=== PATIENT | female | born 1990 | race Caucasian/White ===

== ENCOUNTER 2018-06-13 16:58 | Emergency (ER) | payer OTHER ==
[~2018-06-13] VITALS: Ht 157.5 cm; Wt 85.4 kg
[2018-06-13] MEDS ORDERED: IV NORMAL SALINE 1,000ML 1,000 ML IV SCH (17:23)
--- NOTE | 2018-06-13 17:23 | PHYS DOC ---
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 No blood in the stool or emesis. 4 episodes of vomiting, no episodes of stool. No recent travel, no or unusual foods. Patient's child was sick with similar issues yesterday and is here today due to continued diarrhea. No fever. Diffuse achy pain in the abdomen that is mild. Nothing seems to make this better or worse. Patient has a history of pancreatic cancer that has been resected surgically. No recent changes in weight. No back pain like what was her presenting symptom to ultimately lead to the pancreatic cancer diagnosis.[] Review of Systems Review of Systems Constitutional: Denies fever or chills [] Eyes: Denies change in visual acuity, redness, or eye pain [] HENT: Denies nasal congestion or sore throat [] Respiratory: Denies cough or shortness of breath [] Cardiovascular: No chest pain or palpitations[] GI: See history of present illness[] : Denies dysuria or hematuria [] Musculoskeletal: Denies back pain or joint pain [] Integument: Denies rash or skin lesions [] Neurologic: Denies headache, focal weakness or sensory changes [] Endocrine: Denies polyuria or polydipsia [] All other systems were reviewed and found to be within normal limits, except as documented in this note. Allergies Allergies Allergies Coded Allergies Type Severity Reaction Last Updated Verified No Known Drug Allergies 06/13/18 No Physical Exam Physical Exam Constitutional: Well developed, well nourished, no acute distress, non-toxic appearance. [] HENT: Normocephalic, atraumatic, bilateral external ears normal, oropharynx moist, no oral exudates, nose normal. [] Eyes: PERRLA, EOMI, conjunctiva normal, no discharge. [] Neck: Normal range of motion, no tenderness, supple, no stridor. [] Cardiovascular:Heart rate regular rhythm, no murmur [] Lungs & Thorax: Bilateral breath sounds clear to auscultation [] Abdomen: Bowel sounds normal, soft, no tenderness, no masses, no pulsatile masses. [] Skin: Warm, dry, no erythema, no rash. [] Back: No tenderness, no CVA tenderness. [] Extremities: No tenderness, no cyanosis, no clubbing, ROM intact, no edema. [] Neurologic: Alert and oriented X 3, normal motor function, normal sensory function, no focal deficits noted. [] Psychologic: Affect normal, judgement normal, mood normal. [] Current Patient Data Vital Signs Vital Signs Date Time Temp Pulse Resp B/P (MAP) Pulse Ox O2 Delivery O2 Flow Rate FiO2 06/13/18 16:58 98.4 132 20 95 Room Air EKG EKG [] Radiology/Procedures Radiology/Procedures [] Course & Med Decision Making Course & Med Decision Making Pertinent Labs and Imaging studies reviewed. (See chart for details) ED course: Patient arrived, was placed in bed, tolerated exam well. Patient had IV access established and was given IV fluids as well as antiemetics. Laboratory studies are pending at the time of this dictation. Patient care endorsed to the oncoming physician at 1800.[] Pt. reports marked improvement with symptoms. Bowel sounds hyperactive, but no current vomiting or diarrhea. No true rebound or localization of pain. Pt. Requesting discharge. Discussed lab findings with pt. Reviewed pancreatic cancer resection and spleen removal. Normally follows with [facility]. No over seas travel, specific ill contacts, no contacts with reptiles, poultry ect. No other complaints of infectious sources except and child. . No history of vaginal discharge, dysuria, cough, skin lesions. did have an episode of several days of diarrhea and GI symptoms approximately 1 week ago. No history of intake of bad food. Patient to follow -up primary care. Patient may take Zofran 8 mg up 4 times a day for nausea and vomiting. Patient to have her glucose rechecked upon follow-up. Pt . stay on clear fluids only x 48hs. No solids or milk products. Must allow bowel rest. Suspect viral syndrome, but I do have concerns ref. here prior abd. surgeries, especially spleen removal. Will not start antibiotic at this time - the risks and benefits discussed. . Pt. must return if any increase symptoms or any concerns. Must be followed up closely. Offered Acute Abd. Xray and further labs. Pt. declined at this time. Pt. must have re-exam if no improvement. Impressed on pt. to even return tonight if any concerns. Impression: 1. Abd. Pain 2. Gastroenteritis-nausea, vomiting, diarrhea- suspect viral 3. Leukocytosis 22.4, Seg 89 4. Elevated glucose-145 Follow up call to [facility].- advised Jacklyn was doing much better as well as his son. Encouraged keep follow up. Return if any concern prior to follow at [place]. 06-14-2018 1800 hrs. Dragon Disclaimer Dragon Disclaimer This electronic medical record was generated, in whole or in part, using a voice recognition dictation system. Departure Departure: Referrals: AYAN COLLAZO PA-C (PCP) Scripts Ondansetron Hcl (ZOFRAN) 8 Mg Tablet 8 MG PO QIDPRN PRN for nv, #30 TAB Prov: KATTY SAENZ MD 06/13/18 Sandi Disclaimer This chart was dictated in whole or in part using Voice Recognition software in a busy, high-work load, and often noisy Emergency Department environment. It may contain unintended and wholly unrecognized errors or omissions. Dragon Disclaimer This chart was dictated in whole or in part using Voice Recognition software in a busy, high-work load, and often noisy Emergency Department environment. It may contain unintended and wholly unrecognized errors or omissions. Dragon Disclaimer This chart was dictated in whole or in part using Voice Recognition software in a busy, high-work load, and often noisy Emergency Department environment. It may contain unintended and wholly unrecognized errors or omissions. Discharge Summary Visit Information Final Diagnosis Problems Medical Problems: (1) Viral syndrome Status: Acute Brief Hospital Course Allergies Allergies Coded Allergies Type Severity Reaction Last Updated Verified No Known Drug Allergies 06/13/18 No Vital Signs Vital Signs Date Time Temp Pulse Resp B/P (MAP) Pulse Ox O2 Delivery O2 Flow Rate FiO2 06/13/18 19:05 79 16 113/71 (85) 97 Room Air 06/13/18 16:58 98.4 Lab Results Laboratory Tests Test 06/13/18 17:15 06/13/18 17:30 06/13/18 17:50 White Blood Count 22.4 x10^3/uL (4.0-11.0) Red Blood Count 4.99 x10^6/uL (3.50-5.40) Hemoglobin 15.0 g/dL (12.0-15.5) Hematocrit 44.7 % (36.0-47.0) Mean Corpuscular Volume 90 fL (79-100) Mean Corpuscular Hemoglobin 30 pg (25-35) Mean Corpuscular Hemoglobin Concent 34 g/dL (31-37) Red Cell Distribution Width 13.2 % (11.5-14.5) Platelet Count 564 x10^3/uL (140-400) Neutrophils (%) (Auto) 91 % (31-73) Lymphocytes (%) (Auto) 5 % (24-48) Monocytes (%) (Auto) 3 % (0-9) Eosinophils (%) (Auto) 0 % (0-3) Basophils (%) (Auto) 1 % (0-3) Neutrophils # (Auto) 20.3 x10^3uL (1.8-7.7) Lymphocytes # (Auto) 1.2 x10^3/uL (1.0-4.8) Monocytes # (Auto) 0.7 x10^3/uL (0.0-1.1) Eosinophils # (Auto) 0.1 x10^3/uL (0.0-0.7) Basophils # (Auto) 0.1 x10^3/uL (0.0-0.2) Segmented Neutrophils % 89 % (35-66) Band Neutrophils % 2 % (0-9) Lymphocytes % 4 % (24-48) Monocytes % 4 % (0-10) Eosinophils % 1 % (0-5) Platelet Estimate Increased (ADEQUATE) Sodium Level 138 mmol/L (136-145) Potassium Level 3.9 mmol/L (3.5-5.1) Chloride Level 103 mmol/L (98-107) Carbon Dioxide Level 22 mmol/L (21-32) Anion Gap 13 (6-14) Blood Urea Nitrogen 15 mg/dL (7-20) Creatinine 0.9 mg/dL (0.6-1.0) Estimated GFR (Cockcroft-Gault) 75.1 BUN/Creatinine Ratio 17 (6-20) Glucose Level 145 mg/dL (70-99) Calcium Level 9.1 mg/dL (8.5-10.1) Total Bilirubin 0.3 mg/dL (0.2-1.0) Aspartate Amino Transf (AST/SGOT) 19 U/L (15-37) Alanine Aminotransferase (ALT/SGPT) 27 U/L (14-59) Alkaline Phosphatase 82 U/L (46-116) Total Protein 8.2 g/dL (6.4-8.2) Albumin 4.1 g/dL (3.4-5.0) Albumin/Globulin Ratio 1.0 (1.0-1.7) Lipase 112 U/L (73-393) Influenza Type A (Rapid) Negative (NEGATIVE) Influenza Type B (Rapid) Negative (NEGATIVE) Urine Collection Type Unknown Urine Color Yellow Urine Clarity Clear Urine pH 6.0 Urine Specific [place] >=1.030 Urine Protein Trace (NEG-TRACE) Urine Glucose (UA) Neg mg/dL (NEG) Urine Ketones (Stick) 15 mg/dL (NEG) Urine Blood Neg (NEG) Urine Nitrite Neg (NEG) Urine Bilirubin Neg (NEG) Urine Urobilinogen Dipstick 0.2 mg/dL (0.2 mg/dL) Urine Leukocyte Esterase Neg (NEG) Urine RBC 0 /HPF (0-2) Urine WBC 0 /HPF (0-4) Urine Squamous Epithelial Cells Few /LPF Urine Bacteria Few /HPF (0-FEW) Brief Hospital Course Ms. Myers is a 28 old female who presented with N,V, Diarrhea. Hx. with similar symptoms last week. Pt. risks of spleen removal a concern. Pt. return if no improvement or any concerns. Pt. discharge with Rx. Zofran.. Must have close followup. Pt. reports marked improvement at time of discharge. Pt. see primary in AM. Discharge Information Condition at Discharge: Stable Disposition/Orders: D/C to Home Dischare Medications Current Medications Sodium Chloride 1,000 ml @ 100 mls/hr Q10H IV Last administered on 06/13/18at 17:30; Start 06/13/18 at 17:23; Stop 06/13/18 at 19:26; Status DC Prochlorperazine Edisylate (Compazine) 5 mg 1X ONCE IV Last administered on 05/20at 17:30; Start 06/13/18 at 17:45; Stop 06/13/18 at 17:46; Status DC Ondansetron HCl (Starter Pack - Zofran Odt) 1 [facility] ONCE PO ; Start 06/13/18 at 19:03; Stop 06/13/18 at 19:05; Status DC Ondansetron HCl (Starter Pack - Zofran Odt) 1 startpack 1X ONCE PO Last administered on 06/13/18at 19:14; Start 06/13/18 at 20:00; Stop 06/13/18 at 20:01 ; Status DC Active Scripts Active Zofran (Ondansetron Hcl) 8 Mg Tablet 8 Mg PO QIDPRN PRN Discharge Summary Visit Information Final Diagnosis Problems Medical Problems: (1) Viral syndrome Status: Acute Brief Hospital Course Allergies Allergies Coded Allergies Type Severity Reaction Last Updated Verified No Known Drug Allergies 06/13/18 No Vital Signs Vital Signs Date Time Temp Pulse Resp B/P (MAP) Pulse Ox O2 Delivery O2 Flow Rate FiO2 06/13/18 19:05 79 16 113/71 (85) 97 Room Air 06/13/18 16:58 98.4 Lab Results Laboratory Tests Test 06/13/18 17:15 06/13/18 17:30 06/13/18 17:50 White Blood Count 22.4 x10^3/uL (4.0-11.0) Red Blood Count 4.99 x10^6/uL (3.50-5.40) Hemoglobin 15.0 g/dL (12.0-15.5) Hematocrit 44.7 % (36.0-47.0) Mean Corpuscular Volume 90 fL (79-100) Mean Corpuscular Hemoglobin 30 pg (25-35) Mean Corpuscular Hemoglobin Concent 34 g/dL (31-37) Red Cell Distribution Width 13.2 % (11.5-14.5) Platelet Count 564 x10^3/uL (140-400) Neutrophils (%) (Auto) 91 % (31-73) Lymphocytes (%) (Auto) 5 % (24-48) Monocytes (%) (Auto) 3 % (0-9) Eosinophils (%) (Auto) 0 % (0-3) Basophils (%) (Auto) 1 % (0-3) Neutrophils # (Auto) 20.3 x10^3uL (1.8-7.7) Lymphocytes # (Auto) 1.2 x10^3/uL (1.0-4.8) Monocytes # (Auto) 0.7 x10^3/uL (0.0-1.1) Eosinophils # (Auto) 0.1 x10^3/uL (0.0-0.7) Basophils # (Auto) 0.1 x10^3/uL (0.0-0.2) Segmented Neutrophils % 89 % (35-66) Band Neutrophils % 2 % (0-9) Lymphocytes % 4 % (24-48) Monocytes % 4 % (0-10) Eosinophils % 1 % (0-5) Platelet Estimate Increased (ADEQUATE) Sodium Level 138 mmol/L (136-145) Potassium Level 3.9 mmol/L (3.5-5.1) Chloride Level 103 mmol/L (98-107) Carbon Dioxide Level 22 mmol/L (21-32) Anion Gap 13 (6-14) Blood Urea Nitrogen 15 mg/dL (7-20) Creatinine 0.9 mg/dL (0.6-1.0) Estimated GFR (Cockcroft-Gault) 75.1 BUN/Creatinine Ratio 17 (6-20) Glucose Level 145 mg/dL (70-99) Calcium Level 9.1 mg/dL (8.5-10.1) Total Bilirubin 0.3 mg/dL (0.2-1.0) Aspartate Amino Transf (AST/SGOT) 19 U/L (15-37) Alanine Aminotransferase (ALT/SGPT) 27 U/L (14-59) Alkaline Phosphatase 82 U/L (46-116) Total Protein 8.2 g/dL (6.4-8.2) Albumin 4.1 g/dL (3.4-5.0) Albumin/Globulin Ratio 1.0 (1.0-1.7) Lipase 112 U/L (73-393) Influenza Type A (Rapid) Negative (NEGATIVE) Influenza Type B (Rapid) Negative (NEGATIVE) Urine Collection Type Unknown Urine Color Yellow Urine Clarity Clear Urine pH 6.0 Urine Specific [place] >=1.030 Urine Protein Trace (NEG-TRACE) Urine Glucose (UA) Neg mg/dL (NEG) Urine Ketones (Stick) 15 mg/dL (NEG) Urine Blood Neg (NEG) Urine Nitrite Neg (NEG) Urine Bilirubin Neg (NEG) Urine Urobilinogen Dipstick 0.2 mg/dL (0.2 mg/dL) Urine Leukocyte Esterase Neg (NEG) Urine RBC 0 /HPF (0-2) Urine WBC 0 /HPF (0-4) Urine Squamous Epithelial Cells Few /LPF Urine Bacteria Few /HPF (0-FEW) Brief Hospital Course Ms. Myers is a 28 old female who presented with suspect viral syndrome. Pt. improved with fluids and zofran. Will follow up on friday. Return if any concerns. Discussed risk of spleen removal and need for close follow-up. Discharge Information Condition at Discharge: Improved, Stable Disposition/Orders: D/C to Home Dischare Medications Current Medications Sodium Chloride 1,000 ml @ 100 mls/hr Q10H IV Last administered on 06/13/18at 17:30; Start 06/13/18 at 17:23; Stop 06/13/18 at 19:26; Status DC Prochlorperazine Edisylate (Compazine) 5 mg 1X ONCE IV Last administered on 05/20at 17:30; Start 06/13/18 at 17:45; Stop 06/13/18 at 17:46; Status DC Ondansetron HCl (Starter Pack - Zofran Odt) 1 startpack [facility] ONCE PO ; Start 06/13/18 at 19:03; Stop 06/13/18 at 19:05; Status DC Ondansetron HCl (Starter Pack - Zofran Odt) 1 startpack 1X ONCE PO Last administered on 06/13/18at 19:14; Start 06/13/18 at 20:00; Stop 06/13/18 at 20:01 ; Status DC Active Scripts Active Zofran (Ondansetron Hcl) 8 Mg Tablet 8 Mg PO QIDPRN PRN Discharge Summary Visit Information Final Diagnosis Problems Medical Problems: (1) Viral syndrome Status: Acute Brief Hospital Course Allergies Allergies Coded Allergies Type Severity Reaction Last Updated Verified No Known Drug Allergies 06/13/18 No Vital Signs Vital Signs Date Time Temp Pulse Resp B/P (MAP) Pulse Ox O2 Delivery O2 Flow Rate FiO2 06/13/18 19:05 79 16 113/71 (85) 97 Room Air 06/13/18 16:58 98.4 Lab Results Laboratory Tests Test 06/13/18 17:15 06/13/18 17:30 06/13/18 17:50 White Blood Count 22.4 x10^3/uL (4.0-11.0) Red Blood Count 4.99 x10^6/uL (3.50-5.40) Hemoglobin 15.0 g/dL (12.0-15.5) Hematocrit 44.7 % (36.0-47.0) Mean Corpuscular Volume 90 fL (79-100) Mean Corpuscular Hemoglobin 30 pg (25-35) Mean Corpuscular Hemoglobin Concent 34 g/dL (31-37) Red Cell Distribution Width 13.2 % (11.5-14.5) Platelet Count 564 x10^3/uL (140-400) Neutrophils (%) (Auto) 91 % (31-73) Lymphocytes (%) (Auto) 5 % (24-48) Monocytes (%) (Auto) 3 % (0-9) Eosinophils (%) (Auto) 0 % (0-3) Basophils (%) (Auto) 1 % (0-3) Neutrophils # (Auto) 20.3 x10^3uL (1.8-7.7) Lymphocytes # (Auto) 1.2 x10^3/uL (1.0-4.8) Monocytes # (Auto) 0.7 x10^3/uL (0.0-1.1) Eosinophils # (Auto) 0.1 x10^3/uL (0.0-0.7) Basophils # (Auto) 0.1 x10^3/uL (0.0-0.2) Segmented Neutrophils % 89 % (35-66) Band Neutrophils % 2 % (0-9) Lymphocytes % 4 % (24-48) Monocytes % 4 % (0-10) Eosinophils % 1 % (0-5) Platelet Estimate Increased (ADEQUATE) Sodium Level 138 mmol/L (136-145) Potassium Level 3.9 mmol/L (3.5-5.1) Chloride Level 103 mmol/L (98-107) Carbon Dioxide Level 22 mmol/L (21-32) Anion Gap 13 (6-14) Blood Urea Nitrogen 15 mg/dL (7-20) Creatinine 0.9 mg/dL (0.6-1.0) Estimated GFR (Cockcroft-Gault) 75.1 BUN/Creatinine Ratio 17 (6-20) Glucose Level 145 mg/dL (70-99) Calcium Level 9.1 mg/dL (8.5-10.1) Total Bilirubin 0.3 mg/dL (0.2-1.0) Aspartate Amino Transf (AST/SGOT) 19 U/L (15-37) Alanine Aminotransferase (ALT/SGPT) 27 U/L (14-59) Alkaline Phosphatase 82 U/L (46-116) Total Protein 8.2 g/dL (6.4-8.2) Albumin 4.1 g/dL (3.4-5.0) Albumin/Globulin Ratio 1.0 (1.0-1.7) Lipase 112 U/L (73-393) Influenza Type A (Rapid) Negative (NEGATIVE) Influenza Type B (Rapid) Negative (NEGATIVE) Urine Collection Type Unknown Urine Color Yellow Urine Clarity Clear Urine pH 6.0 Urine Specific [place] >=1.030 Urine Protein Trace (NEG-TRACE) Urine Glucose (UA) Neg mg/dL (NEG) Urine Ketones (Stick) 15 mg/dL (NEG) Urine Blood Neg (NEG) Urine Nitrite Neg (NEG) Urine Bilirubin Neg (NEG) Urine Urobilinogen Dipstick 0.2 mg/dL (0.2 mg/dL) Urine Leukocyte Esterase Neg (NEG) Urine RBC 0 /HPF (0-2) Urine WBC 0 /HPF (0-4) Urine Squamous Epithelial Cells Few /LPF Urine Bacteria Few /HPF (0-FEW) Brief Hospital Course Ms. Myers is a 28 old [sex] who presented with [ ] Discharge Information Dischare Medications Current Medications Sodium Chloride 1,000 ml @ 100 mls/hr Q10H IV Last administered on 06/13/18at 17:30; Start 06/13/18 at 17:23; Stop 06/13/18 at 19:26; Status DC Prochlorperazine Edisylate (Compazine) 5 mg 1X ONCE IV Last administered on 05/20at 17:30; Start 06/13/18 at 17:45; Stop 06/13/18 at 17:46; Status DC Ondansetron HCl (Starter Pack - Zofran Odt) 1 startpack [facility] ONCE PO ; Start 06/13/18 at 19:03; Stop 06/13/18 at 19:05; Status DC Ondansetron HCl (Starter Pack - Zofran Odt) 1 startpack 1X ONCE PO Last administered on 06/13/18at 19:14; Start 06/13/18 at 20:00; Stop 06/13/18 at 20:01 ; Status DC Active Scripts Active Zofran (Ondansetron Hcl) 8 Mg Tablet 8 Mg PO QIDPRN GUDELIAN [place] HERNANDEZ DO Jun 13, 2018 17:23 KATTY SAENZ MD Jun 13, 2018 21:33
[2018-06-13 17:41] LABS: BASO # 0.1 x10^3/uL (0.0-0.2); BASO % 1 % (0-3); EOS # 0.1 x10^3/uL (0.0-0.7); EOS % 0 % (0-3); HEMATOCRIT 44.7 % (36.0-47.0); LYMPH # 1.2 x10^3/uL (1.0-4.8); LYMPH % 5 % (24-48); MEAN CORPUSCULAR HEMOGLOBIN 30 pg (25-35); MEAN CORPUSCULAR HGB CONC 34 g/dL (31-37); MEAN CORPUSCULAR VOLUME 90 fL (79-100); MONO # 0.7 x10^3/uL (0.0-1.1); MONO % 3 % (0-9); NEUT # 20.3 x10^3uL (1.8-7.7); NEUT % 91 % (31-73); PLATELET COUNT 564 x10^3/uL (140-400); RED BLOOD COUNT 4.99 x10^6/uL (3.50-5.40); RED CELL DISTRIBUTION WIDTH 13.2 % (11.5-14.5); WHITE BLOOD COUNT 22.4 x10^3/uL (4.0-11.0)
[2018-06-13] MEDS ORDERED: PROCHLORPERAZINE 10 MG/2 ML VIAL. IV ONE (17:45)
[2018-06-13 17:56] LABS: ALBUMIN 4.1 g/dL (3.4-5.0); CALCIUM 9.1 mg/dL (8.5-10.1); CREATININE 0.9 mg/dL (0.6-1.0); GFR 75.1; POTASSIUM 3.9 mmol/L (3.5-5.1); TOTAL BILIRUBIN 0.3 mg/dL (0.2-1.0); TOTAL PROTEIN 8.2 g/dL (6.4-8.2)
[2018-06-13 17:57] LABS: % EOS 1 % (0-5); % LYMPHS 4 % (24-48); % MONOS 4 % (0-10)
[2018-06-13 17:58] LABS: PLT ESTIMATE INCREASED (ADEQUATE)
[2018-06-13 17:59] LABS: % BANDS 2 % (0-9); % SEGS 89 % (35-66)
[2018-06-13 18:12] LABS: BACTERIA,URINE FEW /HPF (0-FEW); BILIRUBIN,URINE NEG (NEG); CLARITY,URINE CLEAR; COLOR,URINE YELLOW; GLUCOSE,URINE NEG (NEG); NITRITE,URINE NEG (NEG); RBC,URINE 0 /HPF (0-2); SQUAMOUS EPITHELIAL CELL,UR FEW /LPF; UROBILINOGEN,URINE 0.2 mg/dL (0.2 mg/dL); WBC,URINE 0 /HPF (0-4)
[2018-06-13 18:13] LABS: INFLUENZA A PATIENT NEGATIVE (NEGATIVE); INFLUENZA B PATIENT NEGATIVE (NEGATIVE)
[2018-06-13] MEDS ORDERED: ONDA8TAB9 PO (18:59)
[2018-06-13] MEDS ORDERED: ONDANSETRON 4MG ODT 4TABLET STARTPACK. PO ONE ×2 (19:03→20:00)
[2018-06-13 19:05] VITALS: BP 113/71
== END 2018-06-13 19:14 | disposition home or self-care (01) ==
LOC: ER 16:58
DX: K52.9 Noninfective gastroenteritis and colitis, unspecified (principal); D72.829 Elevated white blood cell count, unspecified; R73.9 Hyperglycemia, unspecified; B34.9 Viral infection, unspecified
CPT/HCPCS: 36415; 80053; 81001; 83690; 85007; 85025; 87804; 96361; 96374; 99283; J0780; Q0162; J7030

== ENCOUNTER 2018-12-13 06:34 | Emergency (ER) | payer OTHER ==
[~2018-12-13] VITALS: Ht 157.5 cm; Wt 85.5 kg
[~2018-12-13 06:34] MED LIST: ONDA8TAB9 PO
[2018-12-13] MEDS ORDERED: IV NORMAL SALINE 1,000ML 1,000 ML IV SCH (06:53)
--- NOTE | 2018-12-13 06:59 | PHYS DOC ---
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 She indicates that she went to bed last night with pain and her mid back between her shoulder blades and states that when she woke up this morning, she had pain in her chest as well. She states that initially she was having increased pain with deep breathing but states that currently it is not worsened with deep breathing. She rates pain at an 8 out of 10 and states it feels like something is on her chest. She denies any recent injury. She denies any cough or shortness of breath. She denies any lower extremity pain or swelling. She denies any family history of cardiac disease or blood clots. She states that nothing is improving the pain.[] Review of Systems Review of Systems Constitutional: Denies fever or chills [] Respiratory: Denies cough or shortness of breath [] Cardiovascular: No additional information not addressed in HPI [] GI: Denies abdominal pain, nausea, vomiting or diarrhea [] Musculoskeletal: Complains of midthoracic pain [] Integument: Denies rash or skin lesions [] All other systems were reviewed and found to be within normal limits, except as documented in this note. Allergies Allergies Allergies Coded Allergies Type Severity Reaction Last Updated Verified No Known Drug Allergies 06/13/18 No Physical Exam Physical Exam Constitutional: Well developed, well nourished, no acute distress, non-toxic appearance. [] HENT: Normocephalic, atraumatic, bilateral external ears normal, oropharynx moist, no oral exudates, nose normal. [] Eyes: PERRLA, EOMI, conjunctiva normal, no discharge. [] Neck: Normal range of motion, no tenderness, supple, no stridor. [] Cardiovascular: Regular rate and rhythm. There is reproducible chest wall tenderness along the right sternal border.[] Lungs & Thorax: Bilateral breath sounds clear to auscultation [] Abdomen: Bowel sounds normal, soft, no tenderness. [] Skin: Warm, dry, no erythema, no rash. [] Back: There is tenderness to palpation around T6 and T7 on the right paraspinal musculature. [] Extremities: No tenderness, no cyanosis, no clubbing, ROM intact, no edema. [] Neurologic: Alert and oriented X 3, no focal deficits noted. [] Current Patient Data Vital Signs Vital Signs Date Time Temp Pulse Resp B/P (MAP) Pulse Ox O2 Delivery O2 Flow Rate FiO2 12/13/18 06:49 98.3 80 16 97 Room Air EKG EKG EKG demonstrates sinus rhythm with rate of 76.[] Radiology/Procedures Radiology/Procedures [] Impressions: CXR demonstrates no acute process. Course & Med Decision Making Course & Med Decision Making Pertinent Labs and Imaging studies reviewed. (See chart for details) [] Dragon Disclaimer Dragon Disclaimer This electronic medical record was generated, in whole or in part, using a voice recognition dictation system. Departure Departure: Impression: Primary Impression: Chest wall pain Disposition: HOME, SELF-CARE Condition: STABLE Referrals: AYAN COLLAZO PA-C (PCP) Patient Instructions: Chest Wall Pain Scripts Diclofenac Sodium (DICLOFENAC SODIUM) 50 Mg Tablet.dr 1 TAB PO BID PRN for PAIN, #20 TAB Prov: LENARD UREÑA Jr. DO 12/13/18 Tramadol Hcl (TRAMADOL HCL) 50 Mg Tablet 50 MG PO PRN Q6HRS PRN for PAIN, #12 TAB Prov: LENARD UREÑA Jr. DO 12/13/18 LENARD UREÑA Jr. DO Dec 13, 2018 06:59
[2018-12-13] MEDS ORDERED: ASPIRIN 81 MG TAB.CHEW PO ONE (07:00)
[2018-12-13 07:08] LABS: BASO # 0.1 x10^3/uL (0.0-0.2); BASO % 1 % (0-3); EOS # 0.2 x10^3/uL (0.0-0.7); EOS % 2 % (0-3); HEMOGLOBIN 13.2 g/dL (12.0-15.5); LYMPH # 4.3 x10^3/uL (1.0-4.8); LYMPH % 38 % (24-48); MEAN CORPUSCULAR HEMOGLOBIN 30 pg (25-35); MEAN CORPUSCULAR HGB CONC 33 g/dL (31-37); MEAN CORPUSCULAR VOLUME 90 fL (79-100); MONO # 1.2 x10^3/uL (0.0-1.1); MONO % 10 % (0-9); NEUT # 5.6 x10^3uL (1.8-7.7); NEUT % 49 % (31-73); PLATELET COUNT 546 x10^3/uL (140-400); RED BLOOD COUNT 4.46 x10^6/uL (3.50-5.40); RED CELL DISTRIBUTION WIDTH 13.8 % (11.5-14.5); WHITE BLOOD COUNT 11.3 x10^3/uL (4.0-11.0)
[2018-12-13 07:23] LABS: ALBUMIN 3.8 g/dL (3.4-5.0); ALBUMIN/GLOBULIN RATIO 1.2 (1.0-1.7); CALCIUM 9.3 mg/dL (8.5-10.1); CREATININE 0.8 mg/dL (0.6-1.0); MAGNESIUM 1.8 mg/dL (1.8-2.4); POTASSIUM 4.4 mmol/L (3.5-5.1); TOTAL BILIRUBIN 0.3 mg/dL (0.2-1.0); TOTAL PROTEIN 6.9 g/dL (6.4-8.2)
[2018-12-13] MEDS ORDERED: KETOROLAC 30 MG/ML VIAL. IV ONE (07:30)
--- NOTE | 2018-12-13 07:46 | RAD ---
EXAM: CHEST 1 VIEW History: Chest pain COMPARISON: None available. TECHNIQUE: Single portable radiograph of the chest FINDINGS: The cardiac silhouette is unremarkable. The lungs are clear bilaterally. The costophrenic sulci are clear and well demarcated. IMPRESSION: No radiographic evidence of an acute cardiopulmonary process. Electronically signed by: Tim Flor MD (12/13/2018 7:43 AM) [facility]
[2018-12-13] MEDS ORDERED: DICL50TA4 PO (08:22)
[2018-12-13] MEDS ORDERED: TRAM50TA PO (08:22)
[2018-12-13 08:38] VITALS: BP 99/60
== END 2018-12-13 09:10 | disposition home or self-care (01) ==
LOC: ER 06:34
DX: R07.89 Other chest pain (principal); M54.6 Pain in thoracic spine
CPT/HCPCS: 36415; 71045; 80053; 81025; 83690; 83735; 84484; 85025; 85379; 93005; 96374; 99285; J1885; J7030

== ENCOUNTER 2019-03-20 09:26 | Emergency (ER) | payer OTHER ==
[~2019-03-20] VITALS: Ht 157.5 cm; Wt 90.8 kg
[~2019-03-20 09:26] MED LIST changes: +DICL50TA4 PO; +TRAM50TA PO
[2019-03-20 10:06] LABS: BASO # 0.1 x10^3/uL (0.0-0.2); BASO % 1 % (0-3); EOS # 0.1 x10^3/uL (0.0-0.7); EOS % 1 % (0-3); HEMATOCRIT 39.2 % (36.0-47.0); HEMOGLOBIN 13.2 g/dL (12.0-15.5); LYMPH # 4.6 x10^3/uL (1.0-4.8); LYMPH % 29 % (24-48); MEAN CORPUSCULAR HEMOGLOBIN 30 pg (25-35); MEAN CORPUSCULAR HGB CONC 34 g/dL (31-37); MEAN CORPUSCULAR VOLUME 89 fL (79-100); MONO # 1.4 x10^3/uL (0.0-1.1); MONO % 9 % (0-9); NEUT # 9.5 x10^3uL (1.8-7.7); NEUT % 60 % (31-73); PLATELET COUNT 502 x10^3/uL (140-400); RED BLOOD COUNT 4.38 x10^6/uL (3.50-5.40); RED CELL DISTRIBUTION WIDTH 14.3 % (11.5-14.5); WHITE BLOOD COUNT 15.7 x10^3/uL (4.0-11.0)
--- NOTE | 2019-03-20 10:14 | PHYS DOC ---
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 She reports to be about 6 weeks by last menstrual period. She has not had an OB evaluation. She reports being Rh-. She has abdominal cramping associated with vaginal bleeding. She has not seen passage of tissue. She denies vomiting fevers or chills. The pain is a cramping nonradiating mild to moderate sensation in the pelvic region. Review of systems is negative for chest pain shortness of breath fevers chills vomiting or changes in bowel or bladder. All other review of systems negative. ED course: 29-year-old female presenting with first trimester vaginal bleeding. Ultrasound and blood work obtained along with urinalysis. Ultrasound shows no evidence of intrauterine or extrauterine . Beta hCG is quite low. Otherwise workup is unremarkable. Patient was given RhoGAM because of her Rh- status. We will refer her to [facility] in 2 days for repeat ultrasound and/or quantitative hCG and reexamination. I explained the importance of this to the patient. Allergies Allergies Allergies Coded Allergies Type Severity Reaction Last Updated Verified No Known Drug Allergies 06/13/18 No Physical Exam Physical Exam Constitutional: Well developed, well nourished, no acute distress, non-toxic appearance. [] HENT: Normocephalic, atraumatic, bilateral external ears normal, oropharynx moist, no oral exudates, nose normal. [] Eyes: PERRLA, EOMI, conjunctiva normal, no discharge. [] Neck: Normal range of motion, no tenderness, supple, no stridor. [] Cardiovascular:Heart rate regular rhythm, no murmur [] Lungs & Thorax: Bilateral breath sounds clear to auscultation [] Abdomen: Bowel sounds normal, soft, no tenderness, no masses, no pulsatile masses. [] gu deferred. Skin: Warm, dry, no erythema, no rash. [] Back: No tenderness, no CVA tenderness. [] Extremities: No tenderness, no cyanosis, no clubbing, ROM intact, no edema. [] Neurologic: Alert and oriented X 3, normal motor function, normal sensory function, no focal deficits noted. [] Psychologic: Affect normal, judgement normal, mood normal. [] Current Patient Data Lab Results Laboratory Tests Test 03/20/19 09:51 White Blood Count 15.7 x10^3/uL (4.0-11.0) H Red Blood Count 4.38 x10^6/uL (3.50-5.40) Hemoglobin 13.2 g/dL (12.0-15.5) Hematocrit 39.2 % (36.0-47.0) Mean Corpuscular Volume 89 fL (79-100) Mean Corpuscular Hemoglobin 30 pg (25-35) Mean Corpuscular Hemoglobin Concent 34 g/dL (31-37) Red Cell Distribution Width 14.3 % (11.5-14.5) Platelet Count 502 x10^3/uL (140-400) H Neutrophils (%) (Auto) 60 % (31-73) Lymphocytes (%) (Auto) 29 % (24-48) Monocytes (%) (Auto) 9 % (0-9) Eosinophils (%) (Auto) 1 % (0-3) Basophils (%) (Auto) 1 % (0-3) Neutrophils # (Auto) 9.5 x10^3uL (1.8-7.7) H Lymphocytes # (Auto) 4.6 x10^3/uL (1.0-4.8) Monocytes # (Auto) 1.4 x10^3/uL (0.0-1.1) H Eosinophils # (Auto) 0.1 x10^3/uL (0.0-0.7) Basophils # (Auto) 0.1 x10^3/uL (0.0-0.2) Platelet Estimate Pending EKG EKG [] Radiology/Procedures Radiology/Procedures [] Course & Med Decision Making Course & Med Decision Making Pertinent Labs and Imaging studies reviewed. (See chart for details) [] Dragon Disclaimer Dragon Disclaimer This electronic medical record was generated, in whole or in part, using a voice recognition dictation system. Departure Departure: Impression: Primary Impression: Threatened miscarriage Disposition: 01 HOME, SELF-CARE Condition: STABLE Referrals: AYAN COLLAZO PA-C (PCP) Patient Instructions: Threatened Miscarriage Additional Instructions: Thank you for allowing us to participate in your care today. Return to the emergency department you have any new or worsening symptoms, or if you are concerned for any reason. Return to emergency department if you have any new or concerning symptoms including but not limited to fever, chills, nausea, vomiting, intractable pain, any new rashes, chest pain, shortness of air, uncontrolled bleeding, difficulty breathing, and/or vision loss. Follow up with your primary care physician within 1-2 days. Call your Primary Doctor tomorrow and inform them of your visit today. If you do not have a primary care provider we are happy to provide you with a list of our primary care providers contact information. This condition should be evaluated by your primary care physician and any recommended consulting services for continued management within 2 days after discharge. If at any time, you are having difficulty getting into your primary care doctor or a specialist, return to the emergency department. DOMENICO LANDEROS MD Mar 20, 2019 10:14
[2019-03-20 10:17] LABS: ALBUMIN 3.7 g/dL (3.4-5.0); CALCIUM 9.2 mg/dL (8.5-10.1); CREATININE 0.9 mg/dL (0.6-1.0); DIRECT BILIRUBIN 0.1 mg/dL (0.0-0.2); GFR 74.6; POTASSIUM 3.8 mmol/L (3.5-5.1); TOTAL BILIRUBIN 0.3 mg/dL (0.2-1.0); TOTAL PROTEIN 7.5 g/dL (6.4-8.2)
[2019-03-20 11:16] VITALS: BP 114/76
[2019-03-20 11:19] LABS: BILIRUBIN,URINE NEG (NEG); CLARITY,URINE CLEAR; COLOR,URINE STRAW; GLUCOSE,URINE NEG (NEG)
[2019-03-20 11:20] LABS: BACTERIA,URINE 0 /HPF (0-FEW); NITRITE,URINE NEG (NEG); RBC,URINE RARE /HPF (0-2); SQUAMOUS EPITHELIAL CELL,UR OCC /LPF; UROBILINOGEN,URINE 0.2 mg/dL (0.2 mg/dL); WBC,URINE 0 /HPF (0-4)
[2019-03-20 11:22] LABS: % SEGS 67 % (35-66)
[2019-03-20 11:23] LABS: % BANDS 0 % (0-9); % BASOS 1 % (0-3); % EOS 1 % (0-5); % LYMPHS 26 % (24-48); % MONOS 5 % (0-10); BURR CELLS PRESENT; PLT ESTIMATE INCREASED (ADEQUATE)
--- NOTE | 2019-03-20 12:04 | RAD ---
Exam performed: OB ultrasound first trimester. HISTORY: Post trimester bleeding, patient is 8 weeks . DATE OF SERVICE: 03/20/2019. COMPARISON: None available TECHNIQUE: Transabdominal. FINDINGS: Uterus measures 9.62 x 5.19 x 4.20 cm. The endometrial stripe measures 0.78 cm the fundus and 1.54 cm in the lower uterine segment . No intrauterine gestational sac is identified. Cervical length is normal and measures 3.79. Bilateral ovaries are normal. Right ovary measures 3.15 x 2.67 x 1.4 cm and the left ovary measures 3.19 x 2.82 x 1.67 cm. No solid or cystic masses are seen There is a small amount of simple free fluid in the posterior cul-de-sac. IMPRESSION: Normal uterus and bilateral ovaries. No definite evidence of intra or extrauterine noted. Tiny amount of free fluid in the posterior cul-de-sac likely physiological. Correlate with serial quantitative beta-hCG levels Electronically signed by: Iman Salazar MD (03/20/2019 12:01 PM) [facility]
== END 2019-03-20 12:38 | disposition home or self-care (01) ==
LOC: ER 09:26
DX: O20.0 Threatened abortion (principal); Z3A.01 Less than 8 weeks gestation of pregnancy
CPT/HCPCS: 36415; 36430; 76801; 80048; 80076; 81001; 84702; 85007; 85025; 86850; 86900; 86901; 99285; J2791

== ENCOUNTER 2019-05-25 05:10 | Emergency (ER) | payer OTHER ==
[~2019-05-25] VITALS: Ht 157.5 cm; Wt 93.9 kg
--- NOTE | 2019-05-25 05:13 | PHYS DOC ---
Past History Past Medical History: Cancer Additional Past Medical Histor: pancreatic cancer (KATTY SAENZ MD) Past Surgical History: Spleenectomy Additional Past Surgical Histo: partial pancreas removal (KATTY SAENZ MD) Smoking: Non-smoker Alcohol Use: None Drug Use: None (KATTY SAENZ MD) Adult General Chief Complaint Chief Complaint: ".. I ve been vomiting tonight... I vomited maybe 4 times.. I did eat [place] before it all started..." HPI HPI Patient is a 29 year old female who presents with above hx and complaints of vomiting with epigastric and right upper quadrant pain. Patient patient has significant medical history of pancreatic cancer and removal of two thirds of her pancreas. Pt. had a splenectomy at time of resection of her pancreas. Patient did not require chemotherapy or radiation post surgery. Patient last seen here in March for threatened miscarriage. Patient denies any travel or specific ill contacts. No history of immunosuppression. No history of trauma. Patient normally follows at [place]. (KATTY SAENZ MD) Review of Systems Review of Systems Constitutional: Denies fever or chills [] Eyes: Denies change in visual acuity, redness, or eye pain [] HENT: Denies nasal congestion or sore throat [] Respiratory: Denies cough or shortness of breath [] Cardiovascular: No additional information not addressed in HPI [] GI: Complaints of of epigastric abdominal pain, nausea, vomiting,. Patient denies bloody stools or diarrhea [] : Denies dysuria or hematuria [] Musculoskeletal: Denies back pain or joint pain [] Integument: Denies rash or skin lesions [] Neurologic: Denies headache, focal weakness or sensory changes [] Endocrine: Denies polyuria or polydipsia [] All other systems were reviewed and found to be within normal limits, except as documented in this note. (KATTY SAENZ MD) Family History Family History Noncontributory (KATTY SAENZ MD) Current Medications Current Medications See nursing for home meds (KATTY SAENZ MD) Allergies Allergies Allergies Coded Allergies Type Severity Reaction Last Updated Verified No Known Drug Allergies 06/13/18 No (KATTY SAENZ MD) Physical Exam Physical Exam Constitutional: Moderate acute distress, non-toxic appearance. [] HENT: Normocephalic, atraumatic, bilateral external ears normal, oropharynx moist, no oral exudates, nose normal. [] Eyes: PERRLA, EOMI, conjunctiva normal, no discharge. [] Neck: Normal range of motion, no tenderness, supple, no stridor. [] Cardiovascular:Heart rate regular rhythm, no murmur [] Lungs & Thorax: Bilateral breath sounds equal apex auscultation [] Abdomen: Bowel sounds normal, soft, epigastric and right upper quadrant tenderness, no masses, no pulsatile masses. [] Large midline scar upper abdomen. Rebound to right upper quadrant Skin: Warm, dry, no erythema, no rash. [] Back: No tenderness, no CVA tenderness. [] Extremities: No tenderness, no cyanosis, no clubbing, ROM intact, no edema. [] Neurologic: Alert and oriented X 3, normal motor function, normal sensory function, no focal deficits noted. [] Psychologic: Affect anxious, judgement normal, mood normal. [] (KATTY SAENZ MD) EKG EKG [] (KATTY SAENZ MD) Radiology/Procedures Radiology/Procedures [] (KATTY SAENZ MD) Radiology/Procedures PROCEDURE: CT ABD PELV W/ORAL&IV CONTRAST EXAM: CT ABDOMEN/PELVIS WITH CONTRAST. HISTORY: Right upper quadrant pain, prior pancreatic neoplasm status post resection. TECHNIQUE: Computed tomography of the abdomen and pelvis was performed after the intravenous administration of iodinated contrast. COMPARISON: None. FINDINGS: Lung windows through the visualized portions of the bases reveal no abnormality. Bone windows reveal no suspicious lesions. The pancreatic tail and spleen have been resected. No recurrent mass is identified. The pancreatic head remnant is unremarkable. There are no suspicious hepatic lesions. The kidneys, adrenal glands and gallbladder are unremarkable. There are no pathologically enlarged lymph nodes. There is mild wall thickening of the colon diffusely. There also appears to be mild involvement of the terminal ileum. There is no small bowel obstruction. There is no evidence of appendicitis. IMPRESSION: 1. Correlate for ileal colitis. Infection or inflammatory bowel disease are considerations. 2. Status post distal pancreatectomy and splenectomy. No evidence of recurrence. (YN HERNANDEZ DO) Course & Med Decision Making Course & Med Decision Making Pertinent Labs and Imaging studies reviewed. (See chart for details) Impression: 1. Abdomen Pain 2. Nausea and Vomiting 3. Hx. Pancreatic Cancer- Resection-2 yrs. ago (nonsecreting neuroendocrine tumor) 4. Hx. of Splenectomy - 2 years ago [] (KATTY SAENZ MD) Course & Med Decision Making Received the patient at 6 AM. Agree with previous H&P. Patient has been resting comfortably. She was transported to and from radiology with any complications. After return of laboratory and imaging findings, these were discussed with the patient who voiced understanding. All questions were answered. She was discharged in improved condition. (NY HERNANDEZ DO) Dragon Disclaimer Dragon Disclaimer This electronic medical record was generated, in whole or in part, using a voice recognition dictation system. (KATTY SAENZ MD) Departure Departure: Impression: Primary Impression: Colitis Disposition: 01 HOME, SELF-CARE Condition: IMPROVED Referrals: AYAN COLLAZO PA-C (PCP) Follow-up in 2 days Patient Instructions: Colitis, Diet for Diarrhea, Adult, Nausea and Vomiting Additional Instructions: Drink plenty of fluids, frequent small sips. No fatty foods, no milk, and no pepper for the next 48 hours. For the next 48 hours eat a diet rich in carbohydrates with foods such as bananas, rice, applesauce, and toast. Take the medication as prescribed. Follow-up with your regular doctor in 2 days. Return to the ER if unable to tolerate liquids, blood in stool or emesis, or any other concerns. Scripts Metronidazole (METRONIDAZOLE) 500 Mg Tablet 1 TAB PO QID for colitis for 10 Days, #40 TAB 0 Refills Prov: NY HERNANDEZ DO 05/25/19 Metoclopramide Hcl (REGLAN) 10 Mg Tablet 10 MG PO QID for nausea and vomiting, #30 TAB Prov: NY HERNANDEZ DO 05/25/19 Meloxicam (MELOXICAM) 7.5 Mg Tablet 7.5 MG PO DAILY for PAIN, #20 TAB Prov: NY HERNANDEZ DO 05/25/19 Hyoscyamine Sulfate (LEVSIN) 0.125 Mg Tablet 0.125 MG PO QID for abdominal pain/cramping, #30 TAB Prov: NY HERNANDEZ DO 05/25/19 Sulfamethoxazole/Trimethoprim (BACTRIM DS TABLET) 1 Each Tablet 1 TAB PO BID for colitis, #20 TAB Prov: NY HERNANDEZ DO 05/25/19 Sandi Disclaimer This chart was dictated in whole or in part using Voice Recognition software in a busy, high-work load, and often noisy Emergency Department environment. It may contain unintended and wholly unrecognized errors or omissions. (KATTY SAENZ MD) KATTY SAENZ MD May 25, 2019 05:13 NY HERNANDEZ DO May 25, 2019 08:22
[2019-05-25] MEDS ORDERED: IV RINGERS SOLUTION,LACTATED 1,000 ML IV SCH (05:30)
[2019-05-25 05:50] LABS: BARBITURATES NEG (NEG); BENZODIAZEPINES NEG (NEG); CANNABINOIDS NEG (NEG); COCAINE NEG (NEG); METHADONE NEG (NEG); OPIATES NEG (NEG); PHENCYCLIDINE NEG (NEG)
[2019-05-25 05:51] LABS: BACTERIA,URINE 0 /HPF (0-FEW); BILIRUBIN,URINE NEG (NEG); CLARITY,URINE CLEAR; COLOR,URINE YELLOW; GLUCOSE,URINE NEG (NEG); NITRITE,URINE NEG (NEG); RBC,URINE OCC /HPF (0-2); SQUAMOUS EPITHELIAL CELL,UR OCC /LPF; UROBILINOGEN,URINE 0.2 mg/dL (0.2 mg/dL); WBC,URINE OCC /HPF (0-4)
[2019-05-25 05:54] LABS: AMPHETAMINE/METHAMPHETAMINE NEG (NEG)
[2019-05-25] MEDS ORDERED: CONTRAST GIVEN MC PRN (06:00)
[2019-05-25] MEDS ORDERED: FAMOTIDINE 20 MG/2 ML VIAL IVP ONE (06:00)
[2019-05-25 06:03] LABS: BASO # 0.1 x10^3/uL (0.0-0.2); BASO % 0 % (0-3); EOS # 0.2 x10^3/uL (0.0-0.7); EOS % 1 % (0-3); HEMATOCRIT 42.1 % (36.0-47.0); HEMOGLOBIN 13.9 g/dL (12.0-15.5); LYMPH % 8 % (24-48); MEAN CORPUSCULAR HEMOGLOBIN 29 pg (25-35); MEAN CORPUSCULAR HGB CONC 33 g/dL (31-37); MEAN CORPUSCULAR VOLUME 89 fL (79-100); MONO # 1.5 x10^3/uL (0.0-1.1); MONO % 6 % (0-9); NEUT # 21.2 x10^3uL (1.8-7.7); NEUT % 85 % (31-73); PLATELET COUNT 614 x10^3/uL (140-400); RED BLOOD COUNT 4.72 x10^6/uL (3.50-5.40); RED CELL DISTRIBUTION WIDTH 13.5 % (11.5-14.5); WHITE BLOOD COUNT 24.9 x10^3/uL (4.0-11.0)
--- NOTE | 2019-05-25 06:05 | RAD ---
Exam: Acute abdominal series INDICATION: None TECHNIQUE: Frontal view of the chest with upright and supine views of the abdomen Comparisons: None FINDINGS: The cardiomediastinal silhouette and pulmonary vessels are within normal limits. The lung and pleural spaces are clear. Air and stool are noted throughout the colon to level the rectum in a nonobstructive bowel gas pattern. No suspicious masses or calcifications. IMPRESSION: 1. No acute cardiopulmonary process. 2. Nonobstructive bowel gas pattern. Electronically signed by: Jose Whalen MD (05/25/2019 6:02 AM) [facility]
[2019-05-25 06:10] LABS: CALCIUM 9.2 mg/dL (8.5-10.1); CREATININE 0.8 mg/dL (0.6-1.0); GFR 85.4; POTASSIUM 4.5 mmol/L (3.5-5.1)
[2019-05-25] MEDS ORDERED: IOHEXOL 300 MG/ML 75 ML VIAL. IV ONE (06:15)
[2019-05-25] MEDS ORDERED: IOHEXOL 240 MG/ML 50ML VIAL. PO ONE (06:15)
[2019-05-25] MEDS ORDERED: ONDANSETRON PF 4 MG/2 ML VIAL. ONE (06:16)
[2019-05-25 06:17] LABS: DIRECT BILIRUBIN 0.1 mg/dL (0.0-0.2); MAGNESIUM 1.8 mg/dL (1.8-2.4); TOTAL BILIRUBIN 0.2 mg/dL (0.2-1.0); TOTAL PROTEIN 7.4 g/dL (6.4-8.2)
[2019-05-25] MEDS ORDERED: ONDANSETRON PF 4 MG/2 ML VIAL. IVP ONE (06:30)
[2019-05-25] MEDS ORDERED: ONDANSETRON PF 4 MG/2 ML VIAL. IV ONE (06:30)
[2019-05-25 06:43] LABS: % EOS 1 % (0-5); % LYMPHS 12 % (24-48); % MONOS 3 % (0-10); % SEGS 84 % (35-66)
[2019-05-25 06:44] LABS: PLT ESTIMATE INCREASED (ADEQUATE)
--- NOTE | 2019-05-25 07:08 | EKG ---
[address] [address] Test Date: 2019-05-25 Test Time: 05:50:45 Pat Name: BANDAR DE LUNA Department: Room: Gender: F Hog Cooler: : 1990 Requested By: KATTY SAENZ Order Number: [id number] Reading MD: Measurements Intervals Brandt Rate: 76 P: 33 VT: 150 QRS: 102 QRSD: 74 T: 24 QT: 348 QTc: 391 Interpretive Statements SINUS RHYTHM RIGHTWARD AXIS LOW LIMB LEAD VOLTAGE QRS(T) CONTOUR ABNORMALITY CONSIDER ANTEROLATERAL MYOCARDIAL DAMAGE POSSIBLY ABNORMAL ECG RI6.01 No previous ECG available for comparison
--- NOTE | 2019-05-25 08:13 | RAD ---
EXAM: CT ABDOMEN/PELVIS WITH CONTRAST. HISTORY: Right upper quadrant pain, prior pancreatic neoplasm status post resection. TECHNIQUE: Computed tomography of the abdomen and pelvis was performed after the intravenous administration of iodinated contrast. COMPARISON: None. FINDINGS: Lung windows through the visualized portions of the bases reveal no abnormality. Bone windows reveal no suspicious lesions. The pancreatic tail and spleen have been resected. No recurrent mass is identified. The pancreatic head remnant is unremarkable. There are no suspicious hepatic lesions. The kidneys, adrenal glands and gallbladder are unremarkable. There are no pathologically enlarged lymph nodes. There is mild wall thickening of the colon diffusely. There also appears to be mild involvement of the terminal ileum. There is no small bowel obstruction. There is no evidence of appendicitis. IMPRESSION: 1. Correlate for ileal colitis. Infection or inflammatory bowel disease are considerations. 2. Status post distal pancreatectomy and splenectomy. No evidence of recurrence. *One or more of the following individualized dose reduction techniques were utilized for this examination: 1. Automated exposure control. 2. Adjustment of the mA and/or kV according to patient size. 3. Use of iterative reconstruction technique. Electronically signed by: Maryann Pacheco MD (05/25/2019 8:10 AM) [facility]
[2019-05-25] MEDS ORDERED: SULF1TAB24 PO (08:22)
[2019-05-25] MEDS ORDERED: METO10TA81 PO (08:22)
[2019-05-25] MEDS ORDERED: HYOS0.1264 PO (08:22)
[2019-05-25] MEDS ORDERED: METR-34 PO (08:22)
[2019-05-25] MEDS ORDERED: MELO7.5T29 PO (08:22)
[2019-05-25 08:34] VITALS: BP 130/74
== END 2019-05-25 08:33 | disposition home or self-care (01) ==
LOC: ER 05:10
DX: K52.9 Noninfective gastroenteritis and colitis, unspecified (principal); Z85.07 Personal history of malignant neoplasm of pancreas; Z90.81 Acquired absence of spleen
CPT/HCPCS: 36415; 74022; 74177; 80048; 80076; 80307; 81001; 81025; 82150; 82550; 83690; 83735; 84443; 84484; 84702; 85007; 85025; 85610; 85730; 86705; 86709; 86803; 87340; 93005; 96361; 96374; 96375; 99285; J2405; J3490; J7120; Q9966; Q9967

== ENCOUNTER 2020-06-29 15:36 | Emergency (ER) | payer OTHER ==
[~2020-06-29] VITALS: Ht 157.5 cm; Wt 96.8 kg
[~2020-06-29 15:36] MED LIST changes: +HYOS0.1264 PO; +MELO7.5T29 PO; +METO10TA81 PO; +METR-34 PO; +SULF1TAB24 PO
[2020-06-29 16:21] VITALS: BP 134/95
[2020-06-29] MEDS ORDERED: PENI500T PO (17:20)
[2020-06-29] MEDS ORDERED: HYDR-2155 PO (17:20)
[2020-06-29] MEDS ORDERED: NAPR-514 PO (17:20)
--- NOTE | 2020-06-29 17:21 | PHYS DOC ---
Past History Past Medical History: Cancer, Other Additional Past Medical Histor: Sleep, pancreatic cancer (ZACK JUAREZ APRN) Past Surgical History: Spleenectomy Additional Past Surgical Histo: partial pancreas removal (ZACK JUAREZ APRN) Smoking: Non-smoker Alcohol Use: None Drug Use: None (ZACK JUAREZ APRN) General Adult EDM: Chief Complaint: DENTAL PROBLEM HPI: HPI: Patient is a 30-year-old female who presents to the emergency department with complaints of lower left quadrant dental pain since yesterday. She states that about a week and 1/2 to 2 weeks ago feeling in one of her lower left teeth fell out. She denies any fever, nausea, vomiting, body aches, chills, fatigue, sore throat, headache, cough, or shortness of breath. Patient states that her left ear started to hurt today but denies any drainage or bleeding. She currently r ates pain 10 out of 10 on pain symptoms. Patient states she has an appointment with her dentist next week on July 04 to have her filling replaced. (ZACK JUAREZ APRN) Review of Systems: Review of Systems: Complete ROS is negative unless otherwise noted in HPI. (ZACK JUAREZ APRN) Allergies: Allergies: Allergies Coded Allergies Type Severity Reaction Last Updated Verified No Known Drug Allergies 06/13/18 No (ZACK JUAREZ APRN) Physical Exam: PE: See Above Constitutional: Well developed, well nourished, no acute distress, non-toxic appearance, obese. [] HENT: Normocephalic, atraumatic, bilateral external ears normal, bilateral TMs normal, nose normal; lower left first molar has open cavity has been missing filling no gingival erythema or edema no visible or palpable dental abscess. [] Eyes: PERRLA, EOMI, conjunctiva normal, no discharge. [] Neck: Normal range of motion, supple, no stridor. [] Cardiovascular:Heart rate regular rhythm Lungs & Thorax: Respirations even and unlabored, no retractions, no respiratory distress Skin: Warm, dry, no erythema, no rash. [] Extremities: No cyanosis, ROM intact, no edema. [] Neurologic: Alert and oriented X 3, no focal deficits noted. [] Psychologic: Affect normal, judgement normal, mood normal. [] (ZACK JUAREZ APRN) Current Patient Data: Vital Signs: Vital Signs Date Time Temp Pulse Resp B/P (MAP) Pulse Ox O2 Delivery O2 Flow Rate FiO2 06/29/20 16:21 98.2 79 16 134/95 (108) 98 Room Air (ZACK JUAREZ APRN) EKG: EKG: [] (ZACK JUAREZ APRN) Radiology/Procedures: Radiology/Procedures: [] (ZACK JUAREZ APRN) Heart Score: Risk Factors: Risk Factors: DM, Current or recent (<one month) smoker, HTN, HLP, family history of CAD, obesity. Risk Scores: Score 0 - 3: 2.5% MACE over next 6 weeks - Discharge Home Score 4 - 6: 20.3% MACE over next 6 weeks - Admit for Clinical Observation Score 7 - 10: 72.7% MACE over next 6 weeks - Early Invasive Strategies (ZACK JUAREZ APRN) Course & Med Decision Making: Course & Med Decision Making Pertinent Labs and Imaging studies reviewed. (See chart for details) [] (ZACK JUAREZ APRN) Dragon Disclaimer: Dragon Disclaimer: This electronic medical record was generated, in whole or in part, using a voice recognition dictation system. (ZACK JUAREZ APRN) Departure Departure: Impression: Primary Impression: Dentalgia Additional Impression: Loss of filling from access hole of tooth Disposition: 01 DC HOME SELF CARE/HOMELESS Condition: STABLE Referrals: PCP,UNKNOWN (PCP) Patient Instructions: Dental Pain, [id number] Additional Instructions: Fill the prescriptions take them as directed. Follow-up with your dentist next Friday as planned. Return to the ER if symptoms worsen or fever develops. Scripts Naproxen (NAPROXEN) 500 Mg Tablet 1 TAB PO BID for pain for 10 Days, #20 TAB 0 Refills Prov: ZACK JUAREZ APRN 06/29/20 Hydrocodone Bit/Acetaminophen (HYDROCODONE-APAP 5-325 ) 1 Each Tablet 0.5-1 TAB PO PRN Q6HRS PRN for PAIN for 3 Days, #4 TAB 0 Refills Prov: ZACK JUAREZ APRN 06/29/20 Penicillin V Potassium (PENICILLIN V POTASSIUM) 500 Mg Tablet 1 TAB PO QID for dental infection for 7 Days, #28 TAB 0 Refills Prov: ZACK JUAREZ APRN 06/29/20 Attending Signature Attending Signature I have reviewed the PA/GRINDER GEAR's note and plan of care. I was available for consultation as needed during the patient's visit in the emergency department. I agree with the clinical impression, plan, and disposition. (MAO DEMARCO DO) ZACK JUAREZ APRN Jun 29, 2020 17:21 MAO DEMARCO DO Jun 29, 2020 23:10
== END 2020-06-29 17:30 | disposition home or self-care (01) ==
LOC: ER 15:36
DX: K02.9 Dental caries, unspecified (principal); K08.89 Other specified disorders of teeth and supporting structures
CPT/HCPCS: 99283

== ENCOUNTER 2020-07-09 01:11 | Emergency (ER) | payer OTHER ==
[~2020-07-09 01:11] MED LIST changes: +HYDR-2155 PO; +NAPR-514 PO; +PENI500T PO
--- NOTE | 2020-07-09 01:41 | PHYS DOC ---
Past History Past Medical History: Cancer, Other Additional Past Medical Histor: Sleep, pancreatic cancer Past Surgical History: Spleenectomy Additional Past Surgical Histo: partial pancreas removal Smoking: Non-smoker Alcohol Use: None Drug Use: None Adult General Chief Complaint Chief Complaint: CHEST PAIN HPI HPI Patient is a 30-year-old female who presents with a chief complaint of chest pain. States it started last night, while she was sitting watching TV. States it is central, 5 out of 10, dull and achy in nature with no radiation. States she has had a lot of stress recently as her child was in the hospital and some heartburn and has a history of anxiety. Denies any recent travel, illnesses, fevers, Covid/flu symptoms, shortness of breath, abdominal pain, nausea, vomiting, dysuria, hematuria or blood in the stool. Denies any dyspnea on exertion, PND, orthopnea or edema. Denies any cardiac history in her or her family. Denies any alcohol or drug use. has been eating and drinking normally for her. is making urine and stool normal for her. Review of Systems Review of Systems Review of systems otherwise unremarkable except for noted in HPI Allergies Allergies Allergies Coded Allergies Type Severity Reaction Last Updated Verified No Known Drug Allergies 06/13/18 No Physical Exam Physical Exam Constitutional: Well developed, well nourished, no acute distress, non-toxic appearance. [] HENT: Normocephalic, atraumatic, bilateral external ears normal, oropharynx moist, no oral exudates, nose normal. [] Eyes: conjunctiva normal, no discharge. [] Neck: Normal range of motion, Cardiovascular:Heart rate regular rhythm, no murmur [] Lungs & Thorax: Bilateral breath sounds clear to auscultation [] Abdomen: soft, no tenderness, no masses, no pulsatile masses. [] Skin: Warm, dry, no erythema, no rash. [] Back: No tenderness, Extremities: No tenderness, no cyanosis, no clubbing, ROM intact, no edema. [] Neurologic: Alert and oriented X 3, normal motor function, normal sensory function, no focal deficits noted. [] Psychologic: Affect normal, judgement normal, mood normal. [] EKG EKG Rate of 81, QRS of 74, QTc of 402, no STEMI [] Radiology/Procedures Radiology/Procedures []INDINGS: The cardiomediastinal silhouette is within normal limits. Lungs are clear. There are no significant pleural effusions. There is no pulmonary vascular congestion. No pneumothorax. No suspicious osseous abnormality. IMPRESSION: There is no acute cardiopulmonary process. Electronically signed by: Darcy Grimes MD (07/09/2020 3:05 AM) [facility] Heart Score HEART Score for Chest Pain: HEART Score for Chest Pain Response (Comments) Value History Slighlty/Non-Suspicious 0 ECG Normal 0 Age < 45 0 Risk Factors No Risk Factors 0 Total 0 Risk Factors: Risk Factors: DM, Current or recent (<one month) smoker, HTN, HLP, family history of CAD, obesity. Risk Scores: Risk Factors: DM, Current or recent (<one month) smoker, HTN, HLP, family history of CAD, obesity. Course & Med Decision Making Course & Med Decision Making Patient is a 30-year-old female that presents with chest pain and anxiety Vital signs not concerning. Physical exam noted above. EKG noted, with no STEMI or arrhythmia. Chest x-ray not concerning. Given GI cocktail. On reassessment patient stated she was feeling better and was ready to be discharged home. Discussed strict return precautions to the emergency department. Discussed follow-up with primary care physician. Patient grateful, verbalized understanding and agreed with plan of discharge. [] Dragon Disclaimer Dragon Disclaimer This electronic medical record was generated, in whole or in part, using a voice recognition dictation system. Departure Departure: Impression: Primary Impression: Chest pain Disposition: 01 DC HOME SELF CARE/HOMELESS Condition: GOOD Referrals: PCP,UNKNOWN (PCP) Patient Instructions: Chest Pain (Nonspecific)-Brief Additional Instructions: Please read the attached information. It may be a good idea to stop and get an [id number] heartburn medicine and begin a short course until you can talk to your primary care physician. Please call your primary care physician first thing Friday morning to discuss your ED visit and need for further outpatient evaluation and treatment. Please come back to the emergency department immediately with any new or concerning symptoms as discussed. EVERARDO CARD MD Jul 09, 2020 01:41
[2020-07-09] MEDS ORDERED: LIDO:MAALOX 1:1 20 ML SINGLE DOSE. PO ONE (02:00)
--- NOTE | 2020-07-09 03:08 | RAD ---
XR CHEST 1V 07/09/2020 2:45 AM INDICATION: Chest pain COMPARISON: 12/13/2018 TECHNIQUE: Portable frontal view of the chest is provided. FINDINGS: The cardiomediastinal silhouette is within normal limits. Lungs are clear. There are no significant pleural effusions. There is no pulmonary vascular congestion. No pneumothora x. No suspicious osseous abnormality. IMPRESSION: There is no acute cardiopulmonary process. Electronically signed by: Darcy Grimes MD (07/09/2020 3:05 AM) [facility]
--- NOTE | 2020-07-09 13:42 | EKG ---
[address] [address] Test Date: 2020-07-09 Test Time: 01:35:42 Pat Name: BANDAR DE LUNA Department: Room: Gender: F Manager Of Case: : [id number] Requested By: EVERARDO CARD Order Number: [id number] Reading MD: Kauhsik Cao Measurements Intervals [place] Rate: 81 P: 22 PA: 164 QRS: 113 QRSD: 74 T: 14 QT: 342 QTc: 402 Interpretive Statements SINUS RHYTHM ABNORMAL RIGHT AXIS DEVIATION LOW LIMB LEAD VOLTAGE ABNORMAL ECG Electronically Signed On 07-10-2020 10:02:38 [employer] by Kaushik Cao
== END 2020-07-09 03:17 | disposition home or self-care (01) ==
LOC: ER 01:11
DX: R07.89 Other chest pain (principal); F43.9 Reaction to severe stress, unspecified
CPT/HCPCS: 71045; 81025; 93005; 99283